=== PATIENT | male | born 1950 | race Caucasian/White ===

== ENCOUNTER 2016-11-15 13:11 | Emergency (ER) | payer BC ==
[~2016-11-15] VITALS: Ht 182.9 cm; Wt 95.4 kg
[~2016-11-15 13:11] MED LIST: CELE200C PO; FENT1PAT9 TP; GABA100C PO; IBUP100T4 PO; METH750T87 PO; OXYC-302 PO; PREG150C PO
[2016-11-15 13:14] VITALS: BP 145/88
[2016-11-15] MEDS ORDERED: HYDROmorphone 1 MG/ML, 1ML ONE (13:57)
[2016-11-15] MEDS ORDERED: DIAZEPAM 5 MG TABLET ONE (13:57)
[2016-11-15] MEDS ORDERED: HYDROmorphone 1 MG/ML, 1ML IM ONE (14:00)
[2016-11-15] MEDS ORDERED: DIAZEPAM 5 MG TABLET PO ONE (14:00)
[2016-11-15] MEDS ORDERED: HYDR2TAB13 PO (14:12)
== END 2016-11-15 14:19 | disposition home or self-care (01) ==
LOC: ED 14:13
DX: S39.012A Strain of muscle, fascia and tendon of lower back, initial encounter (principal); X58.XXXA Exposure to other specified factors, initial encounter; Y93.89 Activity, other specified; Y99.8 Other external cause status; Y92.89 Other specified places as the place of occurrence of the external cause
CPT/HCPCS: 96372; 99283; J1170